=== PATIENT | male | born 1970 | race Two or more races ===

== ENCOUNTER 2016-02-23 12:24 | Emergency (ER) | payer SELFPAY ==
[2016-02-23] MEDS ORDERED: TETRACAINE HCL 0.5% OPH SOLN 2 ML OD ONE (12:45)
--- NOTE | 2016-02-23 12:47 | ER Document Report ---
ED Medical Screen (RME) - General Stated Complaint: POSSIBLE OBJECT IN EYE Mode of Arrival: Ambulatory Information source: Patient Notes: Patient presents to the emergency department with right eye irritation for the past 3 day. He was sent over by urgent care with report that he had a piece of metal in his eye.
--- NOTE | 2016-02-23 14:42 | ER Document Report ---
ED Eye Complaint - General Chief Complaint: Foreign Body in Eye Stated Complaint: POSSIBLE OBJECT IN EYE Mode of Arrival: Ambulatory Information source: Patient TRAVEL OUTSIDE OF THE [place] 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 Safety glasses worn: No Contact lenses worn: No Associated symptoms: Foreign body sensation, Other - TEARING - Related Data Allergies/Adverse Reactions: No Known Allergies Allergy (Verified 02/23/16 12:46) Past Medical History - General Information source: Patient - Social History Smoking Status: Current Every Day Smoker Chew tobacco use (# tins/day): No Frequency of alcohol use: Occasional Drug Abuse: None Lives with: Family Family History: Reviewed & Not Pertinent Patient has suicidal ideation: No Patient has homicidal ideation: No - Past Medical History Cardiac Medical History: Reports: None Pulmonary Medical History: Reports: None EENT Medical History: Reports: None Neurological Medical History: Reports: None Endocrine Medical History: Reports: None Renal/ Medical History: Reports: None. Denies: Hx Peritoneal Dialysis Malignancy Medical History: Reports None GI Medical History: Reports: None Musculoskeltal Medical History: Reports None Psychiatric Medical History: Reports: None Traumatic Medical History: Reports: None Surgical Hx: Negative Review of Systems - Review of Systems Constitutional: No symptoms reported EENT: See HPI Cardiovascular: No symptoms reported Respiratory: No symptoms reported Gastrointestinal: No symptoms reported Genitourinary: No symptoms reported Musculoskeletal: No symptoms reported Skin: No symptoms reported Neurological/Psychological: No symptoms reported Physical Exam - Vital signs Interpretation: Hypertensive - General General appearance: Appears well, Alert In distress: None - HEENT Head: Normocephalic Conjunctiva: Injected - O.D. Cornea: Embedded foreign body - O.D., NEAR CENTER Extraocular movements intact: Yes Eyelashes: Normal Pupils: PERRL Visual acuity- Right eye: 0 Visual acuity- Left eye: 20/40-2 Visual acuity- Both eyes: 20/40-1 Corrective lenses worn: No - both eyes blurry since getting metal in eye Anterior chamber: Normal. No: Hyphema Ears: Normal Nasal: Normal Mouth/Lips: Normal Mucous membranes: Normal - Respiratory Respiratory status: No respiratory distress - Extremities General upper extremity: Normal inspection General lower extremity: Normal inspection - Neurological Neuro grossly intact: Yes Cognition: Normal Orientation: AAOx4 - Psychological Associated symptoms: Normal affect - Skin Skin Temperature: Warm Skin Moisture: Dry Skin Color: Normal Skin Turgor: Elastic Procedures - Eye Procedure Right Time completed: 15:02 Eye Irrigated w/ Saline (ccs): 20 Foreign body removal: Right Alcaine Drops Administered: No - TETRACAINE Acular drops administered: Right Slit lamp used: Yes Notes: 02/23/16 15:09 After topical anesthesia with tetracaine, a small metallic foreign body was dislodged with the tip of a sterile 27-gauge needle. Foreign body was retrieved. Rest stain remains. Patient tolerated procedure well. Eyes picture: 1 - FERROUS METAL F.B. Discharge - Discharge Clinical Impression: Corneal foreign body with residual material Qualifiers: Encounter type: initial encounter Laterality: right Qualified Code(s): T15.01XA - Foreign body in cornea, right eye, initial encounter Condition: Stable Disposition: HOME, SELF-CARE Instructions: Corneal Foreign Body with Rust ([facility]), Ketorolac Tromethamine Eye Drops ([facility]) Additional Instructions: USE ACULAR (KETOROLAC) DROPS DIRECTED, LONG DISCOMFORT PERSISTS. FOLLOW UP WITH [facility] [employer] FRIDAY IF ANY PERSISTENT DISCOMFORT. RETURN TO E.R. IF YOUR DISCOMFORT GETS WORSE, ANY TIME. Prescriptions: Ketorolac Tromethamine [Acular] 1 drop OD Q6 #5 ml Referrals: BENITO LANIER DO [ACTIVE STAFF] - Follow up as needed AALIYAH YIP MD [ACTIVE STAFF] - Follow up as needed
[2016-02-23] MEDS ORDERED: KETOROLAC TROMETHAMINE 0.45% 4 DROP/0.4 ML DROPERETTE OD ONE (15:11)
[2016-02-23 15:35] VITALS: BP 140/80
== END 2016-02-23 15:34 | disposition home or self-care (01) ==
LOC: ER 12:24
DX: T15.01XA Foreign body in cornea, right eye, initial encounter (principal); F17.210 Nicotine dependence, cigarettes, uncomplicated
CPT/HCPCS: 99283